=== PATIENT | male | born 1995 ===

== ENCOUNTER → 2022-11-15 | Outpatient (REF) | payer OTHER ==
[2022-11-15 13:37] LABS: SEMEN APPEARANCE OPAQUE (OPAQUE); SEMEN VISCOSITY LIQUID (LIQUID); SEMEN VOLUME 2.7 ml (2.0-5.0); SEMEN pH 8.5 (7.0-8.0); SPERM CONCENTRATION 114.3 M/ml (>=15.0); WBC CONCENTRATION <=1 M/ml (<=1 M/ml)
== END ==
LOC: M LAB REF 13:34
PROVIDERS: ATTEND Physician Assistant
DX: N46.9 Male infertility, unspecified (principal)